=== PATIENT | male | born 1980 | race Hispanic/Latino ===

== ENCOUNTER 2020-03-02 09:26 | Emergency (ER) | payer OTHER ==
[~2020-03-02] VITALS: Ht 190.5 cm; Wt 126.1 kg
[2020-03-02] MEDS ORDERED: DIPHENHYDRAMINE HCL INJ 50 MG/ML VIAL IV ONE (10:00)
[2020-03-02] MEDS ORDERED: SODIUM CHLORIDE 0.9% 1000ML 1,000 ML IV STA (10:00)
[2020-03-02] MEDS ORDERED: KETOROLAC TROMETHAMINE 30 MG/ML VIAL IV STA (10:00)
[2020-03-02] MEDS ORDERED: METOCLOPRAMIDE HCL 10 MG/2ML VIAL IV ONE (10:00)
--- NOTE | 2020-03-02 10:43 | NUR ---
PATIENT TO ROOM 2
--- NOTE | 2020-03-02 10:48 | Emergency Department Note ---
History of Present Illnes History of Present Illness Chief Complaint: Headache History of Present Illness This is a 39 year old male c/o constant throbbing escobedo x 3 days to top of head and frontal lobe has taken tylenol and advil with no relief denies blurred vision denies photosensitivity states when he drives his head feels like its spinning pain made worse when laughing unable to sleep told by pcp to come into er for ct scan denies cp/sob denies trauma denies hx of htn states pain came on suddenly hx of migraines but hasn't lasted this long and says he gets them maybe once a year. Historian: Patient Arrival Mode: Car Onset (how long ago): day(s) (3) Location: head Quality: ache Radiation: Reports non-radiation Severity: severe Onset quality: gradual Timing of current episode: intermittent Progression: waxing and waning Chronicity: recurrent Context: Denies recent illness Relieving factors: none Exacerbating factors: none Associated symptoms: Reports denies other symptoms Past Medical/Family History Physician Review I have reviewed the patient's past medical and family history. Any updates have been documented here. Past Medical History Recent Fever: No Clinical Suspicion of Infectio: No New/Unexplained Change in Ment: No Past Medical History: Migraines Past Surgical History: None Social History Smoking Cessation: Never Smoker Counseling Performed: No Alcohol Use: None Any Illegal Drug Use: No TB Exposure/Symptoms: No Physically hurt or threatened: No Family History Family history of heart diseas: No Other Any Pre-Existing Lines (PICC,: No Review of Systems Review of Systems Constitutional: Reports no symptoms EENTM: Reports no symptoms Cardiovascular: Reports no symptoms Respiratory: Reports no symptoms Gastrointestinal: Reports no symptoms Genitourinary: Reports no symptoms Musculoskeletal: Reports no symptoms Integumentary: Reports no symptoms Neurological: Reports as per HPI, Reports headache Psychological: Reports no symptoms Endocrine: Reports no symptoms Hematological/Lymphatic: Reports no symptoms Physical Exam Related Data Allergies: Coded Allergies: No Known Allergies (Unverified , 03/02/20) Triage Vital Signs Vital Signs Date Time Temp Pulse Resp B/P (MAP) Pulse Ox O2 Delivery O2 Flow Rate FiO2 03/02/20 09:47 98.2 74 18 135/87 97 Room Air Vital signs reviewed: Yes Physical Exam CONSTITUTIONAL Constitutional: Present well-developed, Present well-nourished HENT HENT: Present normocephalic, Present atraumatic, Present oropharynx clear/moist, Present nose normal HENT L/R: Present left ext ear normal, Present right ext ear normal EYES Eyes: Reports PERRL, Reports conjunctivae normal, Reports other (no ocular bruits) NECK Neck: Present ROM normal; Absent carotid bruit PULMONARY Pulmonary: Present effort normal, Present breath sounds normal CARDIOVASCULAR Cardiovascular: Present regular rhythm, Present heart sounds normal, Present capillary refill normal, Present normal rate GASTROINTESTINAL Abdominal: Present soft, Present nontender, Present bowel sounds normal GENITOURINARY Genitourinary: Present exam deferred SKIN Skin: Present warm, Present dry MUSCULOSKELETAL Musculoskeletal: Present ROM normal NEUROLOGICAL Neurological: Present alert, Present oriented x 3, Present no gross motor or sensory deficits PSYCHOLOGICAL Psychological: Present mood/affect normal, Present judgement normal Results Imaging Imaging results reviewed: Yes Impressions Exam: Head CT without contrast History: Headache, vertigo Comparison studies: None Technique: Axial images were obtained from the skull base to the vertex. Coronal and sagittal images reconstructed from the axial data. Dose modulation, iterative reconstruction, and/or weight based adjustment of the mA/kV was utilized to reduce the radiation dose to as low as reasonably achievable. Radiation dose: Total DLP: 1036.57 mGy*cm. Estimated effective dose: DLP x 0.015 Intravenous contrast: None Findings: Scalp: No abnormalities. Bones: No fractures, blastic or lytic lesions. Brain sulci: Appropriate for age. Ventricles: Incidental mild asymmetry of the lateral ventricles with the right lateral ventricle being slightly larger than the left which may be a normal anatomical variant for this patient. No hydrocephalus. Extra-axial spaces: No masses, no fluid collection. Parenchyma: No abnormal densities. No masses, acute hemorrhage, acute or chronic vascular insults. Sellar/suprasellar region: No abnormalities. Craniocervical junction: Patent foramen magnum. No Chiari one malformation. Middle ear cavities and mastoids: Clear. Included paranasal sinuses: Scattered mucosal thickening throughout the paranasal sinuses. Right maxillary sinus is partially opacified with fluid/secretions which could be correlated for acute sinusitis. IMPRESSION: 1. No intracranial abnormalities. 2. Nonspecific inflammatory changes in the paranasal sinuses. Signed by: Dr. Mariano Lambert M.D. on 03/02/2020 11:12 AM Assessment & Plan Medical Decision Making MDM will get CT brain r/o cerebral bleed, mass, SDH, EDH. Will give headache cocktail/IVF's Reassessment Reassessment IMPROVED WITH IVF'S, TORADOL/REGLAN/BENADRYL. DC HOME WITH FIORICET, F/U PCP Assessment & Plan Final Impression: (1) Migraine headache Depart Disposition: HOME, SELF-CARE Last Vital Signs Date Time Temp Pulse Resp B/P (MAP) Pulse Ox O2 Delivery O2 Flow Rate FiO2 03/02/20 09:47 98.2 74 18 135/87 97 Room Air Medications in the ED Sodium Chloride 1,000 ml @ 0 mls/hr Q0M STAT IV ; Start 03/02/20 at 10:00; Stop 03/02/20 at 10:03; Status DC Ketorolac Tromethamine 30 mg ONCE STAT IV ; Start 03/02/20 at 10:00; Stop 03/02/20 at 10:01; Status UNV Metoclopramide HCl 10 mg ONCE ONCE IV ; Start 03/02/20 at 10:00; Stop 03/02/20 at 10:01; Status UNV Diphenhydramine HCl 25 mg NOW ONCE IV ; Start 03/02/20 at 10:00; Stop 03/02/20 at 10:01; Status UNV JONATHON MICHAELS MD Mar 02, 2020 10:48
--- NOTE | 2020-03-02 11:01 | NUR ---
rec'd report in walking roinds with carmelo youssef
--- NOTE | 2020-03-02 11:15 | Diagnostic Imaging Report ---
Exam: Head CT without contrast History: Headache, vertigo Comparison studies: None Technique: Axial images were obtained from the skull base to the vertex. Coronal and sagittal images reconstructed from the axial data. Dose modulation, iterative reconstruction, and/or weight based adjustment of the mA/kV was utilized to reduce the radiation dose to as low as reasonably achievable. Radiation dose: Total DLP: 1036.57 mGy*cm. Estimated effective dose: DLP x 0.015 Intravenous contrast: None Findings: Scalp: No abnormalities. Bones: No fractures, blastic or lytic lesions. Brain sulci: Appropriate for age. Ventricles: Incidental mild asymmetry of the lateral ventricles with the right lateral ventricle being slightly larger than the left which may be a normal anatomical variant for this patient. No hydrocephalus. Extra-axial spaces: No masses, no fluid collection. Parenchyma: No abnormal densities. No masses, acute hemorrhage, acute or chronic vascular insults. Sellar/suprasellar region: No abnormalities. Craniocervical junction: Patent foramen magnum. No Chiari one malformation. Middle ear cavities and mastoids: Clear. Included paranasal sinuses: Scattered mucosal thickening throughout the paranasal sinuses. Right maxillary sinus is partially opacified with fluid/secretions which could be correlated for acute sinusitis. IMPRESSION: 1. No intracranial abnormalities. 2. Nonspecific inflammatory changes in the paranasal sinuses. Signed by: Dr. Mariano Lambert M.D. on 03/02/2020 11:12 AM
[2020-03-02 11:46] VITALS: BP 125/78
== END 2020-03-02 12:10 | disposition home or self-care (01) ==
LOC: ER 10:10
DX: G43.909 Migraine, unspecified, not intractable, without status migrainosus (principal)
CPT/HCPCS: 70450; 99284; J1200; J1885; J2765; J7030